=== PATIENT | male | born 2000 ===

== ENCOUNTER 2022-12-30 14:43 | Emergency (ER) | payer OTHER, SELFPAY ==
[2022-12-30 14:46] VITALS: BP 137/69; PULSE 77; RESP 16; TEMP 37; O2SAT 98; BMI 19.2
[2022-12-30 14:52] VITALS: BP 137/69; PULSE 70; RESP 16; O2SAT 99
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
--- NOTE | 2022-12-30 15:09 | ECG_ITS ---
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 Measurements Intervals [place]ral Rate: 75 P: 60 ND: 139 QRS: 90 QRSD: 107 T: 58 QT: 357 QTc: 400 Interpretive Statements SINUS RHYTHM INCOMPLETE RIGHT BUNDLE BRANCH BLOCK [90+ ms QRS DURATION, TERMINAL R IN V1/V2, 40+ ms S IN I/aVL/V4/V5/V6] No previous ECG available for comparison Electronically Signed On 12-31-2022 9:39:03 CDT by Trevon Gutierres M.D. [id number]
[2022-12-30 15:30] VITALS: BP 141/80; PULSE 81; RESP 16; O2SAT 100
[2022-12-30] MEDS: iohexol 350 mg/mL 500 mL Btl (per mL) IV (15:40)
[2022-12-30 16:00] VITALS: BP 130/72; PULSE 68; RESP 17; O2SAT 100
[2022-12-30 16:01] LABS: Basophils % 0.4 %; Eosinophils # 0.1 10^3/uL (0.0-0.8); Hematocrit 36.1 % (37-53); Lymphocytes # 1.1 10^3/uL (1.5-6.5); Lymphocytes % 16.2 %; Mean Corpuscular HGB Conc 34.3 g/dL (30-55); Mean Corpuscular Hemoglobin 31.9 pg (27-33); Mean Corpuscular Volume 92.8 fl (82-101); Mean Platelet Volume 8.7 fL (7.4-10.4); Monocytes # 0.7 10^3/uL (0.2-0.9); Monocytes % 10.1 %; Neutrophils # 4.95 10^3/uL (1.8-8.0); Neutrophils % 71.9 %; Nucleated Red Blood Cells % 0 %; Platelet Count 224 10^3/cmm (157-399); Red Blood Count 3.89 10^6/uL (3.85-5.65); Red Cell Distribution Width 11.3 % (12.1-15.1)
[2022-12-30 16:19] LABS: Alanine Aminotransferase 14 U/L (0-41); Albumin Level 4.4 g/dL (3.5-5.2); Alkaline Phosphatase 75 U/L (40-130); Aspartate Amino Transferase 23 U/L (0-40); Blood Urea Nitrogen 14 mg/dL (6-20); Calcium 8.8 mg/dL (8.5-10.5); Carbon Dioxide 25 mmol/L (22-29); Chloride 105 mmol/L (98-107); Globulin 2.3 g/dL (1.3-4.6); Glomerular Filtration Rate 107.6 mL/min (90-130); Glucose 89 mg/dL (65-115); Osmolality Calculated 286 mOsm/kg (285-295); Sodium 138 mmol/L (136-145); Total Bilirubin 1.1 mg/dL (0.15-1.2); Total Protein 6.7 g/dL (6.6-8.7)
[2022-12-30 16:30] VITALS: BP 115/62; PULSE 65; RESP 16; O2SAT 99
[2022-12-30 17:00] VITALS: BP 116/66; PULSE 68; RESP 16; O2SAT 95
[2022-12-30] MEDS: lactated ringers 1,000 ML 125 ML IV (17:27)
== END 2022-12-30 17:54 | disposition short-term general hospital (02) ==
PROVIDERS: Emergency Provider Emergency Medicine
DX: S39.91XA Unspecified injury of abdomen, initial encounter (principal); S49.92XA Unspecified injury of left shoulder and upper arm, initial encounter; R18.8 Other ascites; V89.2XXA Person injured in unspecified motor-vehicle accident, traffic, initial encounter
CPT/HCPCS: 36415; 71260; 73030; 74177; 80053; 85025; 93005; 99285; J7120; Q9967